=== PATIENT | male | born 1995 | race Caucasian/White ===

== ENCOUNTER 2024-03-24 20:55 | Emergency (ER) | payer MEDICARE ==
[~2024-03-24 20:55] MED LIST: Iopamidol-370 76% 500 ML MDV (1 ML CHARGE) ONE
[2024-03-24 22:32] LABS: %Basophils 0.5 % (0.0-1.0); %Eosinophils 0.8 % (0.0-10.0); %Lymphocytes 2.4 % (21.0-51.0); %Monocytes 4.8 % (0.0-10.0); Hematocrit 48.3 % (42.0-52.0); Hemoglobin 16.4 g/dL (14.0-18.0); Mean Corpuscular Hemoglobin 30.7 pg (27.0-31.0); Mean Corpuscular Volume 90.3 fL (78.0-98.0); Mean Platelet Volume 8.8 fL (7.4-10.4); Platelet Count 298 10x3/uL (130-400); RBC Distribution Width 12.7 % (11.5-14.5); Red Blood Cell (RBC) Count 5.35 mill/uL (4.70-6.10)
[2024-03-24] MEDS ORDERED: Dicyclomine 20 MG TAB ONE (22:32)
[2024-03-24] MEDS ORDERED: Ondansetron PF 4 MG/2 ML Vial ONE (22:32)
[2024-03-24] MEDS ORDERED: Morphine 4 MG/ML VIAL ONE (22:35)
[2024-03-24 22:53] LABS: ALT (SGPT) 18 U/L (Less than 45); AST (SGOT) 23 U/L (11-34); Albumin 4.6 g/dL (3.1-4.5); Alkaline Phosphatase 46 U/L (40-110); Anion Gap 17 mmol/L (10-20); BUN (Urea Nitrogen) 15 mg/dL (8.9-20.6); Bilirubin, Total 0.5 mg/dL (0.3-1.2); Calc. Creatinine Clearance 0 mL/min (70-130); Calcium 9.6 mg/dL (7.8-10.44); Carbon Dioxide 22 mmol/L (22-29); Chloride 105 mmol/L (98-107); Estimated GFR 94; Globulin 3.3 g/dL (2.4-3.5); Glucose 141 mg/dL (70-105); Lipase 25 U/L (8-78); Protein, Total 7.9 g/dL (6.0-8.3); Sodium 140 mmol/L (136-145)
== END 2024-03-24 23:42 | disposition home or self-care (01) ==
LOC: ERS 20:55
DX: A08.4 Viral intestinal infection, unspecified (principal)
CPT/HCPCS: 74177; 80053; 83605; 83690; 85025; J2270; J2405; 96361; 96374; 96375; Q9967